=== PATIENT | female | born 1965 | race American Indian/Alaskan Native ===

== ENCOUNTER 2017-02-15 10:49 | Emergency (ER) | payer SELFPAY ==
[2017-02-15 11:05] VITALS: BP 124/88
--- NOTE | 2017-02-15 11:31 | Emergency Department Report ---
ED Extremity Problem HPI - General Chief complaint: Extremity Injury, Lower Stated complaint: FALL/LT ANKLE LT FOOT INJURY Time Seen by Provider: 02/15/17 11:29 Source: patient Mode of arrival: Ambulatory Limitations: No Limitations - History of Present Illness Initial comments: Patient states she injured her ankle approximately one week ago and has been walking on it but the pain is not getting any better, so wanted to come in today for an x-ray. -: Sudden, week(s) (1) - Related Data Home Medications Medication Instructions Recorded Confirmed Last Taken Amlodipine Besylate 5 mg PO QDAY 05/12/15 04/08/16 04/07/16 09:00 Clonidine HCl 0.2 mg PO QHS 05/12/15 04/08/16 04/06/16 21:00 Gabapentin 300 mg PO TID PRN 05/12/15 04/08/16 04/01/16 09:00 Ibuprofen 800 mg PO PRN PRN 05/12/15 04/08/16 04/04/16 21:00 ALBUTEROL Inhaler [ProAir HFA 2 puff IH QID PRN 06/02/15 04/08/16 04/05/16 09:00 Inhaler] Metoclopramide HCl [Reglan TAB] 5 mg PO PRN PRN 06/02/15 04/08/16 04/07/16 09:00 Lisinopril/Hydrochlorothiazide 1 tab PO QDAY 06/06/15 04/08/16 04/07/16 09:00 [Zestoretic 20-25 mg] Previous Rx's Medication Instructions Recorded Last Taken Type Cyclobenzaprine HCl [Flexeril 5 MG 5 mg PO TID PRN #14 tab 04/08/16 Unknown Rx TAB] HYDROcodone/APAP 5-325 [[place] 1 each PO Q6HR PRN #14 tablet 04/08/16 Unknown Rx 5/325] Diflunisal 500 mg PO Q12H #20 tab 02/15/17 Unknown Rx Allergies Allergy/AdvReac Type Severity Reaction Status Date / Time sulfamethoxazole Allergy Swelling Verified 02/15/17 10:59 [From Bactrim] trimethoprim [From Bactrim] Allergy Swelling Verified 02/15/17 10:59 ED Review of Systems ROS: Stated complaint: FALL/LT ANKLE LT FOOT INJURY Other details as noted in HPI Comment: All other systems reviewed and negative Constitutional: no symptoms reported Eyes: as per HPI ENT: as per HPI Respiratory: no symptoms reported Cardiovascular: as per HPI Musculoskeletal: joint swelling, arthralgia Skin: as per HPI Neurological: as per HPI ED Past Medical Hx - Past Medical History Hx Hypertension: Yes (since age 23) Hx CVA: No Hx Heart Attack/AMI: No Hx Congestive Heart Failure: No Hx Diabetes: Yes Hx Deep Vein Thrombosis: No Hx Pulmonary Embolism: No Hx GERD: Yes Hx Liver Disease: No Hx Renal Disease: No Hx Sickle Cell Disease: No Hx Arthritis: Yes Hx Headaches / Migraines: Yes (past hx migraines) Hx Seizures: No Hx Kidney Stones: No Hx Psychiatric Treatment: No Hx Asthma: No Hx COPD: No Hx Tuberculosis: No Hx Dementia: No Hx HIV: No Additional medical history: anemia and DJD - Surgical History Hx Coronary Stent: No Hx Open Heart Surgery: No Hx Internal Defibrillator: No Hx Cholecystectomy: No Hx Appendectomy: No Hx Breast Surgery: No Additional Surgical History: Tubal ligation, Fibroid removal, Back Surgery. HYSTERECTOMY - Social History Smoking Status: Former Smoker Substance Use Type: Alcohol, Prescribed - Medications Home Medications: Home Medications Medication Instructions Recorded Confirmed Last Taken Type Amlodipine Besylate 5 mg PO QDAY 05/12/15 04/08/16 04/07/16 09:00 History Clonidine HCl 0.2 mg PO QHS 05/12/15 04/08/16 04/06/16 21:00 History Gabapentin 300 mg PO TID PRN 05/12/15 04/08/16 04/01/16 09:00 History Ibuprofen 800 mg PO PRN PRN 05/12/15 04/08/16 04/04/16 21:00 History ALBUTEROL Inhaler [ProAir HFA 2 puff IH QID PRN 06/02/15 04/08/16 04/05/16 09: 00 History Inhaler] Metoclopramide HCl [Reglan TAB] 5 mg PO PRN PRN 06/02/15 04/08/16 04/07/16 09: 00 History Lisinopril/Hydrochlorothiazide 1 tab PO QDAY 06/06/15 04/08/16 04/07/16 09:00 History [Zestoretic 20-25 mg] Cyclobenzaprine HCl [Flexeril 5 MG 5 mg PO TID PRN #14 tab 04/08/16 Unknown Rx TAB] HYDROcodone/APAP 5-325 [[place] 1 each PO Q6HR PRN #14 tablet 04/08/16 Unknown Rx 5/325] Diflunisal 500 mg PO Q12H #20 tab 02/15/17 Unknown Rx ED Physical Exam - General Limitations: No Limitations General appearance: alert, in no apparent distress - Head Head exam: Present: atraumatic, normocephalic - Eye Eye exam: Present: normal appearance - ENT ENT exam: Present: mucous membranes moist - Neck Neck exam: Present: normal inspection - Respiratory Respiratory exam: Present: normal lung sounds bilaterally. Absent: respiratory distress - Cardiovascular Cardiovascular Exam: Present: regular rate. Absent: systolic murmur, diastolic murmur, rubs, gallop - Expanded Lower Extremity Exam Right Ankle exam: Present: tenderness, swelling. Absent: ecchymosis, deformity, crepidus, dislocation, anterior draw sign Foot/Toe exam: Present: tenderness, swelling. Absent: ecchymosis, deformity, crepidus, dislocation Neuro vascular tendon exam: Present: no vascular compromise. Absent: pulse deficit, abnormal cap refill, motor deficit, sensory deficit, tendon deficit, significant pain with passive ROM of distal joint ED Course Vital Signs 02/15/17 11:02 Temperature 98.3 F Pulse Rate 72 Respiratory 17 Rate Blood Pressure 124/88 O2 Sat by Pulse 100 Oximetry Critical care attestation.: If time is entered above; I have spent that time in minutes in the direct care of this critically ill patient, excluding procedure time. ED Disposition Clinical Impression: Ankle sprain Disposition: DISCHARGED TO HOME OR SELFCARE Is pt being admited?: No Condition: Stable Instructions: Ankle Sprain (ED) Prescriptions: Diflunisal 500 mg PO Q12H #20 tab Referrals: PRIMARY CARE, [Primary Care Provider] - 3-5 Days
--- NOTE | 2017-02-15 12:33 | XRay Report ---
LEFT ANKLE, 3 views: History: Left ankle pain, injury. Bone mineralization is normal. No acute osseous abnormality or joint pathology is identified. There is moderate lateral soft tissue swelling. IMPRESSION: Soft tissue swelling. No acute bony findings are appreciated.
== END 2017-02-15 13:24 | disposition home or self-care (01) ==
LOC: ED 10:49
DX: S93.492A Sprain of other ligament of left ankle, initial encounter (principal); I10 Essential (primary) hypertension; E11.9 Type 2 diabetes mellitus without complications; M19.90 Unspecified osteoarthritis, unspecified site; K21.9 Gastro-esophageal reflux disease without esophagitis; W19.XXXA Unspecified fall, initial encounter; Y93.89 Activity, other specified; Y92.89 Other specified places as the place of occurrence of the external cause; Y99.8 Other external cause status; Z88.2 Allergy status to sulfonamides; Z88.8 Allergy status to other drugs, medicaments and biological substances